=== PATIENT | male | born 1975 | race Hispanic/Latino ===

== ENCOUNTER 2024-03-02 04:38 | Emergency (ER) | payer OTHER ==
[2024-03-02] MEDS ORDERED: LIDOCAINE 1% 20 ML MDV ONE (05:03)
--- NOTE | 2024-03-02 05:37 | EDPHYS ---
Physician Documentation [facility] Name: Adilson Alex Age: 48 yrs Sex: Male : 1975 Arrival Date: 03/02/2024 Time: 04:38 Bed 19 Private MD: ED Physician Christos Gandhi HPI: 03/02 04:48 This 48 yrs old Male presents to ER via Unassigned with complaints of Abscess sp4 Recheck. 05:37 48-year-old male presents with complaint of incompletely drained abscess of the sp4 thoracic back. Patient states he was at [facility] 2 days ago and abscess was drained but he feels that it was not draining properly. . Historical: - Allergies: 04:53 No Known Allergies; jb4 - PMHx: 04:53 Anxiety; jb4 - PSHx: 04:53 None; jb4 - Immunization history:: Adult Immunizations up to date. - Infectious Disease History:: Denies. - Social history:: Smoking status: Patient reports the use of cigarette tobacco products, denies chronic smoking, but will smoke occasionally, Patient uses alcohol, occasionally. - Family history:: not pertinent. ROS: 05:37 Constitutional: Negative for fever, chills, and weight loss, positive for abscess to sp4 mid thoracic back 05:37 All other systems are negative, Exam: 05:37 Constitutional: This is a well developed, well nourished patient who is awake, alert, sp4 and in no acute distress. Head/Face: Normocephalic, atraumatic. Eyes: Pupils equal round and reactive to light, extra-ocular motions intact. Lids and lashes normal. Conjunctiva and sclera are not injected. Cornea within normal limits. Periorbital areas with no swelling, redness, or edema. ENT: Nares patent. No nasal discharge, no septal abnormalities noted. Tympanic membranes are normal and external auditory canals are clear. Oropharynx with no redness, swelling, or masses, exudates, or evidence of obstruction, uvula midline. Mucous membranes moist. Neck: Trachea midline, no thyromegaly or masses palpated, and no cervical lymphadenopathy. Supple, full range of motion without nuchal rigidity, or vertebral point tenderness. Chest/axilla: Normal chest wall appearance and motion. Nontender with no deformity. No lesions are appreciated. Cardiovascular: Regular rate and rhythm with a normal S1 and S2. No gallops, murmurs, or rubs. Normal PMI, no JVD. No pulse deficits. Respiratory: Lungs have equal breath sounds bilaterally, clear to auscultation and percussion. No rales, rhonchi or wheezes noted. No increased work of breathing, no retractions or nasal flaring. Abdomen/GI: Soft, with normal bowel sounds. No distension or tympany. No guarding or rebound. No evidence of tenderness throughout. Back: No spinal tenderness. No costovertebral tenderness. Positive for infected appearing sebaceous cyst to mid thoracic back roughly in the midline. Skin: Warm, dry with normal turgor. Normal color with no rashes, no lesions, and no evidence of cellulitis. MS/ Extremity: Pulses equal, no cyanosis. Neurovascular intact. Full, normal range of motion. Neuro: Awake and alert, GCS 15, oriented to person, place, time, and situation. Cranial nerves II-XII grossly intact. Motor strength 5/5 in all extremities. Sensory grossly intact. Psych: Awake, alert, with orientation to person, place and time. Behavior, mood, and affect are within normal limits Vital Signs: 04:48 BP 124 / 85; Pulse 87; Resp 16; Temp 98.9; Pulse Ox 99% ; Weight 73.48 kg (R); Height 5 jb4 ft. 7 in. (R); Pain 3/10; 05:52 BP 133 / 98; Pulse 87; Resp 19; Pulse Ox 98% ; jj7 04:48 Body Mass Index 25.37 (73.48 kg, 170.18 cm) jb4 04:48 Pain Scale: Adult jb4 Yasmeen Coma Score: 05:37 Eye Response: spontaneous(4). Motor Response: obeys commands(6). Verbal Response: sp4 oriented(5). Total: 15. Procedures: 05:33 I \T\ D: Incision and drainage was performed for an abscess of the thoracic area - mid sp4 back infected sebaceous cyst Prepped with Betadine, Anesthetized with 30 ml's 1% Lidocaine. Incised with #11 blade. Drained large amount purulent fluid. bloody fluid. Loculations removed. Packed with sterile gauze, Dressing: sterile 4x4 gauze, the patient tolerated the procedure well, Advised packing removal in 48 hours. MDM: 04:57 Patient medically screened. sp4 05:33 Differential diagnosis: cellulitis, Infected sebaceous cyst, cutaneous abscess. Data sp4 reviewed: vital signs, nurses notes. ED course: Accu-Chek 131. Patient advised to see Dr. Petersen for cyst resection . 03/02 05:15 Order name: Glucose, Ancillary Testing EDMS 03/02 04:55 Order name: Accucheck Blood Glucose; Complete Time: 05:02 sp4 03/02 04:56 Order name: Dressing - Wound; Complete Time: 05:36 sp4 03/02 04:56 Order name: Gloves, Sterile; Complete Time: 05:08 sp4 03/02 04:56 Order name: Setup Suture Tray; Complete Time: 05:08 sp4 Administered Medications: 05:08 Drug: Lidocaine Infiltration (1 %) 20 ml 20 ml Infiltration once; to bedside {Note: jj7 ADMIN BY DR HORTON.} Volume: 20 ml; Route: Infiltration; 05:26 Follow up: Response: Pain is decreased jj7 05:08 Drug: Lidocaine Infiltration (1 %) 20 ml 20 ml Infiltration once; to bedside {Note: jj7 ADMIN BY DR HORTON.} Volume: 20 ml; Route: Infiltration; 05:26 Follow up: Response: Pain is decreased jj7 Disposition Summary: 03/02/24 05:36 Discharge Ordered Notes: Location: Home sp4 Problem: new sp4 Symptoms: have improved sp4 Condition: Stable sp4 Diagnosis - Sebaceous cyst sp4 - Infected sebaceous cyst of the thoracic back sp4 Followup: sp4 - With: Beto Petersen MD - When: 10 - 14 days - Reason: Recheck today's complaints Followup: sp4 - With: Cristian Spence DO - When: 10 - 14 days - Reason: Recheck today's complaints Discharge Instructions: - Discharge Summary Sheet sp4 - Skin Abscess, [id number] sp4 Forms: - Patient Portal Instructions sp4 Prescriptions: - Ibuprofen 800 mg Oral Tablet - take 1 tablet ORAL route every 8 hours As needed take with food; 30 tablet; sp4 Refills: 0, Product Selection Permitted Signatures: Alex Hemphill RN RN jb4 Deon Gates RN RN jj7 Damien Gandhigey, MD MD sp4
--- NOTE | 2024-03-02 05:37 | ER ---
Nurse's Notes [facility] Name: Adilson Alex Age: 48 yrs Sex: Male : 1975 Arrival Date: 03/02/2024 Time: 04:38 Bed 19 Private MD: Diagnosis: Sebaceous cyst;Infected sebaceous cyst of the thoracic back Presentation: 03/02 04:48 Chief complaint: Patient states: I was recently incarcerated. I have an abscess in the jb4 middle of my back. they were treating it there. They told me I need to changed the dressing daily but I cannot reach it and I was not sent home with my antibiotics or supplies to change it with. Coronavirus screen: At this time, the client does not indicate any symptoms associated with coronavirus-19. Ebola Screen: No symptoms or risks identified at this time. Initial Sepsis Screen: Does the patient meet any 2 criteria? No. Patient's initial sepsis screen is negative. Does the patient have a suspected source of infection? No. Patient's initial sepsis screen is negative. Risk Assessment: Do you want to hurt yourself or someone else? Patient reports no desire to harm self or others. Onset of symptoms was March 02, 2024. Transition of care: patient was not received from another setting of care. 04:48 Method Of Arrival: Ambulatory jb4 04:48 Acuity: PAUL 4 jb4 Historical: - Allergies: 04:53 No Known Allergies; jb4 - PMHx: 04:53 Anxiety; jb4 - PSHx: 04:53 None; jb4 - Immunization history:: Adult Immunizations up to date. - Infectious Disease History:: Denies. - Social history:: Smoking status: Patient reports the use of cigarette tobacco products, denies chronic smoking, but will smoke occasionally, Patient uses alcohol, occasionally. - Family history:: not pertinent. Screenin:00 [facility] ED Fall Risk Assessment (Adult) History of falling in the last 3 months, jj7 including since admission No falls in past 3 months (0 pts) Confusion or Disorientation No (0 pts) Intoxicated or Sedated No (0 pts) Impaired Gait No (0 pts) Mobility Assist Device Used No (0 pt) Altered Elimination No (0 pt) Score/Fall Risk Level 0 - 2 = Low Risk Oriented to surroundings, Maintained a safe environment, Educated pt \T\ family on fall prevention, incl call for assistance when getting out of bed. Abuse screen: Denies threats or abuse. Nutritional screening: No deficits noted. Tuberculosis screening: No symptoms or risk factors identified. Assessment: 05:00 General: Appears in no apparent distress. comfortable, Behavior is calm, cooperative, jj7 appropriate for age. Pain: Complains of pain in back. Derm: Abscess located on back has purulent drainage, is raised, LANCED AT [facility] 2 DAYS AGO. Vital Signs: 04:48 BP 124 / 85; Pulse 87; Resp 16; Temp 98.9; Pulse Ox 99% ; Weight 73.48 kg (R); Height 5 jb4 ft. 7 in. (R); Pain 3/10; 05:52 BP 133 / 98; Pulse 87; Resp 19; Pulse Ox 98% ; jj7 04:48 Body Mass Index 25.37 (73.48 kg, 170.18 cm) jb4 04:48 Pain Scale: Adult jb4 Yasmeen Coma Score: 05:37 Eye Response: spontaneous(4). Motor Response: obeys commands(6). Verbal Response: sp4 oriented(5). Total: 15. ED Course: 04:39 Patient arrived in ED. jb4 04:48 Christos Gandhi MD is Attending Physician. sp4 04:53 Triage completed. jb4 04:53 Arm band placed on right wrist. jb4 05:00 Patient has correct armband on for positive identification. Placed in gown. Bed in low jj7 position. Call light in reach. Provided Education on: USE OF CALL HERNANDEZ. 05:01 Deon Gates RN is Primary Nurse. jj7 05:12 Assist provider with I \T\ D: of an abscess on Set up I\T\D tray. Performed by Christos jacob 7 Oksana KO Wound packed. iodoform gauze, Dressing with Patient tolerated well. 05:35 Beto Petersen MD is Referral Physician. sp4 05:36 Cristian Spence DO is Referral Physician. sp4 05:52 Patient did not have IV access during this emergency room visit. jj7 Administered Medications: 05:08 Drug: Lidocaine Infiltration (1 %) 20 ml 20 ml Infiltration once; to bedside {Note: jj7 ADMIN BY DR HORTON.} Volume: 20 ml; Route: Infiltration; 05:26 Follow up: Response: Pain is decreased jj7 05:08 Drug: Lidocaine Infiltration (1 %) 20 ml 20 ml Infiltration once; to bedside {Note: jj7 ADMIN BY DR HORTON.} Volume: 20 ml; Route: Infiltration; 05:26 Follow up: Response: Pain is decreased j Medication: 05:00 VIS not applicable for this client. jj7 Outcome: 05:36 Discharge ordered by MD. rowell 05:52 Discharged to home ambulatory, jj 05:52 Condition: improved 05:52 Discharge instructions given to patient, Instructed on discharge instructions, follow up and referral plans. medication usage, wound care, Demonstrated understanding of instructions, follow-up care, medications, wound care, Prescriptions given X 1, 05:53 Patient left the ED. jj7 Signatures: Alex Hemphill RN RN jb4 Deon Gates RN RN jj7 Christos Gandhi MD MD sp4
[2024-03-02 06:06] VITALS: BP 133/98; TEMP 98.9; O2SAT 98
== END 2024-03-02 05:53 | disposition home or self-care (01) ==
LOC: ER 04:38
PROC: 0H96XZZ Drainage of Back Skin, External Approach (ICD-10-PCS; principal; 2024-03-02)
DX: L72.3 Sebaceous cyst (principal); F17.210 Nicotine dependence, cigarettes, uncomplicated
CPT/HCPCS: 82947; 10060; J2001